=== PATIENT | male | born 1950 | race Caucasian/White ===

== ENCOUNTER 2017-09-28 09:49 | Emergency (ER) | payer OTHER, MEDICARE ==
[~2017-09-28] VITALS: Ht 177.8 cm; Wt 91.4 kg
[~2017-09-28 09:49] MED LIST: AMLODIPINE BESY10 MG PO; COMPAZINE10 MG PO; Ecotrin PO; LOPRESSOR50 MG PO; OMEPRAZOLE20 M3 PO; ONCOVIN; TYLOX1 CAPSULE PO; VICODIN 5-3001 EACH PO; VITAMIN D5000 UNIT PO; ZOFRAN4 MG PO; [UNRECOGNIZED DRUG - OTHER] PO
[2017-09-28 10:00] VITALS: BP 168/119
[2017-09-28 10:20] LABS: APPEARANCE CLEAR ((CLEAR)); BILIRUBIN NEGATIVE; BLOOD SMALL; COLOR STRAW ((YELLOW)); GLUCOSE (STRIP) NEGATIVE; KETONES NEGATIVE; LEUKOCYTES NEGATIVE; NITRITE NEGATIVE; PROTEIN (STRIP) NEGATIVE; SPECIFIC GRAVITY 1.004 (1.000-1.030); UROBILINOGEN 0.2 MG/DL (0.2-1.0)
[2017-09-28 10:24] LABS: BACTERIA NONE SEEN /HPF; EPITHELIAL CELLS NONE SEEN /HPF; MUCUS NONE SEEN /LPF; RED BLOOD CELLS 0-5 /HPF (0-5); UCUL ADDED? NO; WHITE BLOOD CELLS 0-5 /HPF (0-5)
== END 2017-09-28 12:09 | disposition left against medical advice (07) ==
LOC: EME 09:49
DX: R30.0 Dysuria (principal); R10.31 Right lower quadrant pain; N50.819 Testicular pain, unspecified; Z53.21 Procedure and treatment not carried out due to patient leaving prior to being seen by health care provider
CPT/HCPCS: 81003; 99281; 99282